=== PATIENT | male | born 1955 | race African-American/Black ===

== ENCOUNTER 2018-12-26 07:58 | Inpatient (IN) | payer OTHER ==
[2018-12-26] VITALS (18 sets, daily range): BP systolic 86–182; BP diastolic 41–78
[~2018-12-26] VITALS: Ht 180.3 cm; Wt 92.9 kg
[~2018-12-26 07:58] MED LIST: CHOL100046 PO; ELBA1TAB PO; FLO0.4C PO; LIDOcaine 1% (10mg/ml) 2ml vial ONE; REM15T PO; ROSU5TAB PO; TRIAMCINOLONE BOTHNARES; acetaminophen 325mg tablet PO ONE
[2018-12-26 09:50] LABS: BASOPHILS % (AUTO) 0.5 % (0-1); EOSINOPHILS # (AUTO) 0.4 X10'3 (0-0.9); EOSINOPHILS % (AUTO) 9.3 % (0-6); LYMPHOCYTES # (AUTO) 1.5 X10'3 (1.1-4.8); LYMPHOCYTES % (AUTO) 31.7 % (21-51); MEAN CORPUSCULAR HEMOGLOBIN 28.9 PG (27.0-31.0); MEAN CORPUSCULAR HGB CONC 32.2 g/dL (33.0-36.5); MEAN CORPUSCULAR VOLUME 89.8 FL (78-98); MEAN PLATELET VOLUME 8.4 FL (7.4-10.4); MONOCYTES # (AUTO) 0.6 X10'3 (0-0.9); NEUTROPHILS # (AUTO) 2.1 X10'3 (1.8-7.7); NEUTROPHILS % (AUTO) 46.5 % (42-75); PRE OP HEMATOCRIT 44.9 % (42.0-52.0); PRE OP HEMOGLOBIN 14.5 g/dL (14.0-17.9); PRE OP PLATELET COUNT 180 X10'3 (140-440); RED CELL DISTRIBUTION WIDTH 13.5 % (11.5-14.5)
[2018-12-26 09:56] LABS: PRE OP INR 1.1 INR; PRE OP PROTIME 11.1 SECONDS (9.0-12.0)
[2018-12-26 09:59] LABS: BLOOD UREA NITROGEN 6 MG/DL (7-18); CHLORIDE 109 MMOL/L (99-107); CREATININE 1.08 MG/DL (0.60-1.10); PRE OP ANION GAP 8 (8-16); PRE OP GLUCOSE 96 MG/DL (70-104); PRE OP POTASSIUM 4.3 MMOL/L (3.4-5.1); PRE OP SODIUM 145 MMOL/L (135-145); TOTAL CARBON DIOXIDE 28.5 MMOL/L (24-32)
[2018-12-26 10:00] LABS: ALBUMIN 3.5 G/DL (3.4-5.0); ALBUMIN/GLOBULIN RATIO 1.1 (1.1-1.5); ALKALINE PHOSPHATASE 79 IU/L (46-116); BUN/CREATININE RATIO 5.6 (5.4-32.0); CALCIUM 8.7 MG/DL (8.5-10.1); PRE OP ALT 48 U/L (30-65); PRE OP AST 35 U/L (10-37); PRE OP BILIRUB, TOTAL 0.9 MG/DL (0.0-1.0); TOTAL PROTEIN 6.8 G/DL (6.4-8.2); eGFR 84 ML/MIN
[2018-12-26] MEDS ORDERED: famotidine 20mg tablet PO ONE (11:30)
[2018-12-26] MEDS ORDERED: ringers solution, lacted 1,000 ML IV SCH ×2 (11:30→16:12)
[2018-12-26] MEDS ORDERED: tranexamic acid inj. 1,000 MG in normal saline 100 ML IV ONE (11:30)
[2018-12-26] MEDS ORDERED: cefazolin/dext.iso 2gm/50ml 50 ML IV ONE (11:30)
[2018-12-26] MEDS ORDERED: gabapentin 300mg capsule PO ONE (11:30)
[2018-12-26] MEDS ORDERED: oxyCODONE SR 10mg (sust. release) tab -2 tabs (20mg) PO ONE (11:30)
[2018-12-26] MEDS ORDERED: metoclopramide 5 mg/ml inj IV ONE (11:30)
[2018-12-26] MEDS ORDERED: vancomycin inj 1,500 MG in normal saline 300ml IV soln IV ONE (11:30)
[2018-12-26] MEDS ORDERED: diphenhydrAMINE 50 mg/ml inj ONE (12:30)
[2018-12-26] MEDS ORDERED: epiNEPHrine 1 mg/ml inj ONE (13:07)
[2018-12-26] MEDS ORDERED: cloNIDine hcl/PF 100mcg/ml inj ONE (13:07)
[2018-12-26] MEDS ORDERED: Thrombin (Bovine) 5,000 unit vial TP ONE (13:08)
[2018-12-26] MEDS ORDERED: ROPIVAcaine 0.5% (5mg/ml) 30ml vial ONE ×3 (13:08→15:55)
[2018-12-26] MEDS ORDERED: morphine 10mg/ml inj. ONE (13:08)
[2018-12-26] MEDS ORDERED: vancomycin 1,000mg inj ONE (13:08)
--- NOTE | 2018-12-26 14:15 | NUR ---
PT AGITATED AND VERY UNHAPPY ABOUT THE DELAY IN SURG. PT FRUSTRATED THAT SHE CANT REACH . NA 127, REPORTED TO DR LESLIE
[2018-12-26] MEDS ORDERED: tetracaine 1% (10mg/ml) pres. free inj. ONE (15:04)
[2018-12-26] MEDS ORDERED: fentaNYL/PF 50MCG/1 ML 2ML syringe ONE (15:06)
[2018-12-26] MEDS ORDERED: MIDAZolam 5mg/5ml vial ONE (15:06)
[2018-12-26] MEDS ORDERED: morphine /PF 1mg/ml 10ml inj. ONE (15:06)
[2018-12-26] MEDS ORDERED: LIDOcaine 1%/PF 5ML 10 MG/ML VIAL ONE (15:45)
[2018-12-26] MEDS ORDERED: propofol inj 20 ML IV ONE (15:45)
[2018-12-26] MEDS ORDERED: BUPIVAcaine/PF 7.5mg/ml (0.75%) 10ml vial ONE (15:45)
[2018-12-26] MEDS ORDERED: ketorolac trometh. 30mg/ml inj. ONE (15:55)
[2018-12-26] MEDS ORDERED: calcium chloride 100 MG/1 ML inj IV ONE (16:01)
[2018-12-26] MEDS ORDERED: naloxone 2mg/2ml inj 1.8 MG in normal saline 500ml IV soln 500 ML IV PRN (16:12)
[2018-12-26] MEDS ORDERED: proCHLORperazine 10 MG/2 ml inj IV PRN (16:15)
[2018-12-26] MEDS ORDERED: morphine 4 MG/ML inj SYRINge IV PRN ×2 (16:15)
[2018-12-26] MEDS ORDERED: diphenhydrAMINE 50 mg/ml inj IV PRN (16:15)
[2018-12-26] MEDS ORDERED: ondansetron/PF 4mg/2ml inj IV PRN ×3 (16:15→17:50)
[2018-12-26] MEDS ORDERED: meperidine/PF 25mg/ml syringe IV PRN ×3 (16:15)
[2018-12-26] MEDS ORDERED: bisacodyl 10mg suppository rectal RC PRN (17:50)
[2018-12-26] MEDS ORDERED: oxyCODONE IR 5mg (immed. release) tablet PO PRN (17:50)
[2018-12-26] MEDS ORDERED: HYDROmorphone inj. 0.5 MG/0.5 ML DISP.SYRIN IV PRN (17:50)
[2018-12-26] MEDS ORDERED: diphenhydrAMINE 25mg capsule PO PRN ×2 (17:50)
[2018-12-26] MEDS ORDERED: HYDROmorphone 1 mg/ml syringe IV PRN (17:50)
[2018-12-26] MEDS ORDERED: magnesium hydroxide 30ml (MOM) UD suspension PO PRN (17:50)
--- NOTE | 2018-12-26 17:50 | NUR ---
Received from OR via BED , accompanied by Anesthesiologist DR JUAREZ and report given by Anesthesiolgist. PATIENT WAKING UP, DENIES PAIN, V/S WNL, NEUROVASCULAR CHECKS INTACT, 20G PIV LORETTA, SCD ON, .MIDLINE ABDOMEN DRESSING CDI WITH SOME SHADOWING TO DRESSING BUT NO BREAKTHROUGH DRAINAGE. F/C DRAINING CLEAR YELLOW URINE Addendum: 12/26/18 at 1757 by Lauri August RN WRONG PATIENT
--- NOTE | 2018-12-26 18:00 | NUR ---
Received from OR via ortho bed, accompanied by Anesthesiologist Zack and report given by Anesthesiolgist. Pt responsive, patient on room air sats 98%, and BP slightly hypotensive 80s/40s, pt in trendelenberg and MD giving appropriate medications at bedside. BP rising. Pt responsive to questions. IV 18G in left forearm running LR IVF. Pulses distally to surgical site palpable and present. Left knee site has joseph dressing with cool pack present.
[2018-12-26] MEDS ORDERED: ePHEDrine 50MG/ML INJ. ONE (18:28)
[2018-12-26] MEDS: ROPIVAcaine 0.2%/PF PAIN PUMP 550 ML IJ SCH (18:43)
--- NOTE | 2018-12-26 18:54 | NUR ---
Called report to Liudmila HARP
--- NOTE | 2018-12-26 19:10 | NUR ---
Report called to receiving nurse. Transferred via ortho bed Belongings with guards at bedside. Special Issues communicated to receiving nurse LOYD Nur. Pt alert and responsive, all VS are stable, pt on room air, responding appropriately. IV remains to left forearm, pulses remain palpable distally to surgical site. Pt does not have feeling below T8 per spinal block. ON-Q attached to site running at 8ml/hr per MD orders. Guards at bedside. Tele retreived and placed on patient.
[2018-12-26] MEDS ORDERED: vancomycin/NS 1 GM ADD-VANTAGE 250 ML IV SCH ×2 (20:00→22:52)
[2018-12-26] MEDS ORDERED: tranexamic acid inj. 900 MG in normal saline 100ml IV soln 100 ML IV ONE (20:50)
[2018-12-26] MEDS: potassium cl 20mEq in 1/2 NS 1,000 ML IV SCH (21:02)
[2018-12-26] MEDS: ketorolac tromethamine 15mg/ml inj. IV SCH (21:03)
[2018-12-26] MEDS: mirtazapine 15mg tablet PO SCH (22:13)
[2018-12-26] MEDS: tamsulosin 0.4mg capsule PO SCH (22:13)
[2018-12-26] MEDS: gabapentin 300mg capsule PO SCH (22:13)
[2018-12-26] MEDS: sennosides 8.6mg tablet PO SCH (22:14)
[2018-12-27] VITALS (9 sets, daily range): BP systolic 88–159; BP diastolic 48–88
[2018-12-27] MEDS: potassium cl 20mEq in 1/2 NS 1,000 ML IV SCH ×3 (01:46→16:41)
[2018-12-27] MEDS: ketorolac tromethamine 15mg/ml inj. IV SCH ×3 (02:00→14:29)
[2018-12-27] MEDS: oxyCODONE IR 5mg (immed. release) tablet PO PRN ×4 (04:43→20:53)
[2018-12-27 05:26] LABS: BASOPHILS % (AUTO) 0.1 % (0-1); EOSINOPHILS # (AUTO) 0.1 X10'3 (0-0.9); EOSINOPHILS % (AUTO) 1.1 % (0-6); HEMATOCRIT 37.8 % (42.0-52.0); HEMOGLOBIN 12.4 g/dl (14.0-17.9); LYMPHOCYTES # (AUTO) 1.1 X10'3 (1.1-4.8); LYMPHOCYTES % (AUTO) 15.9 % (21-51); MEAN CORPUSCULAR HEMOGLOBIN 29.9 PG (27.0-31.0); MEAN CORPUSCULAR HGB CONC 32.9 g/dL (33.0-36.5); MEAN CORPUSCULAR VOLUME 90.9 FL (78-98); MEAN PLATELET VOLUME 8.4 FL (7.4-10.4); MONOCYTES # (AUTO) 0.7 X10'3 (0-0.9); MONOCYTES % (AUTO) 10.3 % (2-12); NEUTROPHILS # (AUTO) 5.2 X10'3 (1.8-7.7); NEUTROPHILS % (AUTO) 72.6 % (42-75); PLATELET COUNT 169 X10'3 (140-440); RED BLOOD COUNT 4.16 X10'6 (4.70-6.10); WHITE BLOOD COUNT 7.1 X10'3 (4.5-11.0)
[2018-12-27 05:30] LABS: ANION GAP 11 (8-16); CHLORIDE 109 MMOL/L (99-107); POTASSIUM 4.3 MMOL/L (3.5-5.1); SODIUM 144 MMOL/L (135-145); TOTAL CARBON DIOXIDE 24.5 MMOL/L (24-32)
--- NOTE | 2018-12-27 06:37 | NUR ---
Patient in room ORTHO 4017. I have received report from Liudmila HARP and had the opportunity to ask questions and assume patient care.
[2018-12-27] MEDS: ZEPATIER PO SCH (07:28)
[2018-12-27] MEDS: vitamin D (cholecalciferol) 1,000 unit tablet PO SCH (07:29)
[2018-12-27] MEDS: atorvastatin 20mg tablet PO SCH (07:30)
[2018-12-27] MEDS: gabapentin 300mg capsule PO SCH ×3 (07:31→20:51)
[2018-12-27] MEDS: enoxaparin 40mg/0.4ml syringe SQ SCH (07:31)
[2018-12-27] MEDS: fluticasone nasal spray 16GM bottle NS SCH (07:32)
[2018-12-27] MEDS ORDERED: ASPI-1 PO (09:10)
[2018-12-27] MEDS ORDERED: OXYC-658 PO (09:12)
--- NOTE | 2018-12-27 10:58 | NUR ---
RUI melvin. patient tolerated well. educated on using urinal and bathroom from now on.
--- NOTE | 2018-12-27 13:00 | NUR ---
Picco dressing saturated with blood. Dr. Maurice notified said to changed picco dressing and put in knee imobilizer until bleeding stops. Changed Picco dressing and knee wrap after applying pressure gauze dressing.
--- NOTE | 2018-12-27 15:02 | NUR ---
Joint consult: Pt s/p joint surgery. PO increased to 80% meals per RN w/ good appetite. Labs WNL. To return to skilled nursing post-op per MD note. No nutrition concerns at this time. Will continue to monitor. Addendum: 12/27/18 at [address] Amended: Links added.
--- NOTE | 2018-12-27 18:33 | NUR ---
Problems reprioritized. Patient report given, questions answered & plan of care reviewed with Edda HARP.
--- NOTE | 2018-12-27 20:00 | NUR ---
Patient assessed. Dressing to right total knee assess has some bloody drainage noted to joseph dressing. Margins marked. Patient has good Capillary refills and good pulse to that right leg. Will continue with care.
[2018-12-27] MEDS: sennosides 8.6mg tablet PO SCH (20:51)
[2018-12-27] MEDS: mirtazapine 15mg tablet PO SCH (20:52)
[2018-12-27] MEDS: tamsulosin 0.4mg capsule PO SCH (20:55)
--- NOTE | 2018-12-27 22:00 | NUR ---
Patient stating pain is 10/10 after 1 hr of oxycodone given. Ropivacaine increased from 12ml/hr tp 14ml/hr. Will continue with care.
[2018-12-27] MEDS ORDERED: ketorolac tromethamine 15mg/ml inj. IV PRN (22:25)
--- NOTE | 2018-12-27 22:40 | NUR ---
Dr. Maurice notified of patient's Fever of 101.5. After cooling measures started and Encourage use of IS. Patient is allergic to Tylenol, naproxen, and ibuprofen. New orders for Toradol 15mg PRN Q6hrs. Updated MD of patient's Joseph dressing-No new bleeding noted to joseph dressing. Continue with cooling measures and Encourage IS use.
--- NOTE | 2018-12-28 00:35 | NUR ---
Patient Dressing check. No new bleeding noted from the margins kerwin at the beginning of the shift. Temp 99.6 currently.
[2018-12-28] MEDS: potassium cl 20mEq in 1/2 NS 1,000 ML IV SCH ×2 (00:45→09:46)
[2018-12-28] MEDS: oxyCODONE IR 5mg (immed. release) tablet PO PRN ×3 (05:26→13:53)
[2018-12-28 06:00] VITALS: BP 164/97
--- NOTE | 2018-12-28 06:20 | NUR ---
Patient in room ORTHO 4017. I have received report from Nirav and had the opportunity to ask questions and assume patient care.
[2018-12-28 07:17] LABS: BASOPHILS % (AUTO) 0.2 % (0-1); EOSINOPHILS % (AUTO) 0.1 % (0-6); HEMATOCRIT 39.8 % (42.0-52.0); HEMOGLOBIN 13.1 g/dl (14.0-17.9); LYMPHOCYTES # (AUTO) 1.3 X10'3 (1.1-4.8); LYMPHOCYTES % (AUTO) 13.7 % (21-51); MEAN CORPUSCULAR HEMOGLOBIN 29.8 PG (27.0-31.0); MEAN CORPUSCULAR HGB CONC 32.9 g/dL (33.0-36.5); MEAN CORPUSCULAR VOLUME 90.6 FL (78-98); MEAN PLATELET VOLUME 9.1 FL (7.4-10.4); MONOCYTES # (AUTO) 1.3 X10'3 (0-0.9); MONOCYTES % (AUTO) 13.6 % (2-12); NEUTROPHILS % (AUTO) 72.4 % (42-75); PLATELET COUNT 138 X10'3 (140-440); RED BLOOD COUNT 4.39 X10'6 (4.70-6.10); RED CELL DISTRIBUTION WIDTH 13.6 % (11.5-14.5); WHITE BLOOD COUNT 9.7 X10'3 (4.5-11.0)
[2018-12-28] MEDS: vitamin D (cholecalciferol) 1,000 unit tablet PO SCH (07:59)
[2018-12-28] MEDS: atorvastatin 20mg tablet PO SCH (07:59)
[2018-12-28] MEDS: gabapentin 300mg capsule PO SCH ×2 (07:59→13:50)
[2018-12-28] MEDS: enoxaparin 40mg/0.4ml syringe SQ SCH (08:00)
[2018-12-28] MEDS: fluticasone nasal spray 16GM bottle NS SCH (08:00)
[2018-12-28] MEDS: ROPIVAcaine 0.2%/PF PAIN PUMP 550 ML IJ SCH (08:02)
--- NOTE | 2018-12-28 09:00 | NUR ---
DC orders in. Awaiting coordination with [facility] for transport.
[2018-12-28] MEDS: ZEPATIER PO SCH (09:16)
[2018-12-28 09:43] VITALS: BP 167/96
--- NOTE | 2018-12-28 17:14 | NUR ---
Reviewed post -op instructions with pt. Pt verbalized understanding. Spoke with RN at [facility] to provide instructions regarding On-Q pump and SAMREEN dressing. Pt was wheeled downstairs, accompanied by guards/[facility] personnel, to be driven back to the [facility].
== END 2018-12-28 16:45 | DRG 470 ==
LOC: PAS IN 07:58 → EEVIPCON 13:30 → EDSTATUS 13:30 → ORTHO 4S 19:05
PROVIDERS: ADMIT Orthopaedic Surgery; ATTEND Orthopaedic Surgery
PROC: 3E0T3BZ Introduction of Anesthetic Agent into Peripheral Nerves and Plexi, Percutaneous Approach (ICD-10-PCS; 2018-12-26)
PROC: 8E0YXCZ Robotic Assisted Procedure of Lower Extremity (ICD-10-PCS; 2018-12-26)
PROC: 0SRD069 Replacement of Left Knee Joint with Oxidized Zirconium on Polyethylene Synthetic Substitute, Cemented, Open Approach (ICD-10-PCS; principal; 2018-12-26 15:00)
DX: M17.12 Unilateral primary osteoarthritis, left knee (principal); D62 Acute posthemorrhagic anemia; N40.0 Benign prostatic hyperplasia without lower urinary tract symptoms; B19.20 Unspecified viral hepatitis C without hepatic coma; Z88.0 Allergy status to penicillin; Z88.5 Allergy status to narcotic agent
CPT/HCPCS: Z7506; Z7508; 36415; 80051; 80053; 85025; 85610; 85730; 87081; 93005; 97110; 97116; 97162; 97530; A4215; A6454; A7000; C1713; C1758; C1776; G0378; J0171; J0735; J1170; J1200; J1650; J1885; J2001; J2250; J2270; J2405; J2704; J2765; J2795; J3010; J3370; J3480; J3490; J7030; J7120; Q0163

== ENCOUNTER 2019-01-02 11:56 | Inpatient (IN) | payer OTHER ==
[~2019-01-02] VITALS: Ht 180.3 cm; Wt 91.8 kg
[~2019-01-02 11:56] MED LIST changes: +ASPI-1 PO; -LIDOcaine 1% (10mg/ml) 2ml vial ONE; +OXYC-658 PO; -TRIAMCINOLONE BOTHNARES; -acetaminophen 325mg tablet PO ONE
[2019-01-02 22:00] VITALS: BP 145/75
[2019-01-02] MEDS ORDERED: magnesium hydroxide 30ml (MOM) UD suspension PO PRN (22:15)
[2019-01-02] MEDS ORDERED: ondansetron/PF 4mg/2ml inj IV PRN (22:15)
[2019-01-02] MEDS ORDERED: HYDROmorphone inj. 0.5 MG/0.5 ML DISP.SYRIN IV PRN (22:15)
[2019-01-02] MEDS ORDERED: bisacodyl 10mg suppository rectal RC PRN (22:15)
[2019-01-02] MEDS ORDERED: dextrose 5%-1/2 normal saline 1,000 ML IV SCH (22:15)
[2019-01-02] MEDS ORDERED: diphenhydrAMINE 25mg capsule PO PRN ×2 (22:15)
[2019-01-02] MEDS ORDERED: oxyCODONE IR 5mg (immed. release) tablet PO PRN (22:15)
[2019-01-02 23:05] LABS: BASOPHILS % (AUTO) 0.3 % (0-1); EOSINOPHILS # (AUTO) 0.2 X10'3 (0-0.9); EOSINOPHILS % (AUTO) 1.8 % (0-6); HEMATOCRIT 33.2 % (42.0-52.0); HEMOGLOBIN 11.2 g/dl (14.0-17.9); LYMPHOCYTES # (AUTO) 0.9 X10'3 (1.1-4.8); LYMPHOCYTES % (AUTO) 10.2 % (21-51); MEAN CORPUSCULAR HEMOGLOBIN 29.9 PG (27.0-31.0); MEAN CORPUSCULAR HGB CONC 33.7 g/dL (33.0-36.5); MEAN CORPUSCULAR VOLUME 88.8 FL (78-98); MEAN PLATELET VOLUME 7.5 FL (7.4-10.4); MONOCYTES # (AUTO) 1.4 X10'3 (0-0.9); MONOCYTES % (AUTO) 16.4 % (2-12); NEUTROPHILS % (AUTO) 71.3 % (42-75); PLATELET COUNT 300 X10'3 (140-440); RED BLOOD COUNT 3.74 X10'6 (4.70-6.10); RED CELL DISTRIBUTION WIDTH 12.9 % (11.5-14.5); WHITE BLOOD COUNT 8.4 X10'3 (4.5-11.0)
[2019-01-02] MEDS: oxyCODONE IR 5mg (immed. release) tablet PO PRN (23:17)
[2019-01-03] VITALS (13 sets, daily range): BP systolic 108–143; BP diastolic 53–81
--- NOTE | 2019-01-03 06:05 | NUR ---
Patient in room ORTHO 4015. I have received report from ROBBIE HARP and had the opportunity to ask questions and assume patient care.
--- NOTE | 2019-01-03 06:14 | NUR ---
Problems reprioritized. Patient report given, questions answered & plan of care reviewed with LOYD Arias.
[2019-01-03] MEDS: ELBASVIR PO SCH ×2 (08:00→21:30)
[2019-01-03] MEDS ORDERED: tamsulosin 0.4mg capsule PO SCH (08:00)
[2019-01-03] MEDS: GRAZOPREVIR PO SCH ×2 (08:00→21:30)
[2019-01-03] MEDS: vitamin D (cholecalciferol) 1,000 unit tablet PO SCH (08:00)
[2019-01-03] MEDS: tamsulosin 0.4mg capsule PO SCH (08:06)
[2019-01-03] MEDS: atorvastatin 20mg tablet PO SCH (08:06)
[2019-01-03] MEDS: oxyCODONE IR 5mg (immed. release) tablet PO PRN ×2 (08:07→12:13)
[2019-01-03] MEDS: normal saline 1000ml 1,000 ML IV SCH ×2 (12:17→22:00)
--- NOTE | 2019-01-03 16:30 | NUR ---
PATIENT DOWN TO THE OR, REPORT CALLED TO KIMMIE HARP.
[2019-01-03] MEDS ORDERED: tobramycin sulfate 1.2gm vial TP ONE (16:37)
[2019-01-03] MEDS ORDERED: vancomycin 1,000mg inj ONE ×2 (16:55→18:44)
[2019-01-03] MEDS ORDERED: tranexamic acid inj. 1,000 MG in normal saline 100ml IV soln 100 ML IV ONE (17:05)
[2019-01-03] MEDS ORDERED: tetracaine 1% (10mg/ml) pres. free inj. ONE (17:18)
[2019-01-03] MEDS ORDERED: MIDAZolam 1mg/ml 10ml vial ONE (17:20)
[2019-01-03] MEDS ORDERED: fentaNYL/PF 50MCG/1 ML 2ML syringe ONE (17:20)
[2019-01-03] MEDS ORDERED: ringers solution, lacted 1,000 ML IV SCH (17:28)
[2019-01-03] MEDS ORDERED: morphine 4 MG/ML inj SYRINge IV PRN ×2 (17:30)
[2019-01-03] MEDS ORDERED: proCHLORperazine 10 MG/2 ml inj IV PRN (17:30)
[2019-01-03] MEDS ORDERED: ondansetron/PF 4mg/2ml inj IV PRN ×2 (17:30→19:10)
[2019-01-03] MEDS ORDERED: meperidine/PF 25mg/ml syringe IV PRN ×3 (17:30)
[2019-01-03] MEDS ORDERED: propofol inj 20 ML IV ONE ×2 (17:49)
--- NOTE | 2019-01-03 18:00 | NUR ---
Problems reprioritized. Patient report given, questions answered & plan of care reviewed with ERASTO RN.
[2019-01-03] MEDS ORDERED: neomy sulf/bacitrac zn/polymixin b oint 14.2 gm tube TP ONE (19:03)
[2019-01-03] MEDS ORDERED: diphenhydrAMINE 25mg capsule PO PRN ×2 (19:10)
[2019-01-03] MEDS ORDERED: magnesium hydroxide 30ml (MOM) UD suspension PO PRN (19:10)
[2019-01-03] MEDS ORDERED: HYDROmorphone inj. 0.5 MG/0.5 ML DISP.SYRIN IV PRN (19:10)
[2019-01-03] MEDS ORDERED: oxyCODONE IR 5mg (immed. release) tablet PO PRN (19:10)
[2019-01-03] MEDS ORDERED: bisacodyl 10mg suppository rectal RC PRN (19:10)
[2019-01-03] MEDS ORDERED: acetaminophen 325mg tablet PO PRN (19:10)
--- NOTE | 2019-01-03 19:40 | NUR ---
Received from OR via BED, accompanied by Anesthesiologist LEONARDO and report given by Anesthesiolgist. PT DROWSY, OXYGENATING WELL ON 2 LPM O2 VIA MASK, NO RESP DISTRESS NOTED. PT DENIES NAUSEA, DENIES PAIN. HAD SAB AND L FNB. NO MOVEMENT OR SENSATION FROM THE UMBILICUS DOWN. PPP=BILAT. L KNEE IMMOBILIZER ON. WV TO INCISION, 125 SX, GOOD SEAL. DEE DRAIN TO LLE WELL. SCDS ON. VSS. FC PATENT
[2019-01-03] MEDS ORDERED: vancomycin/NS 1 GM ADD-VANTAGE 250 ML IV SCH (20:00)
--- NOTE | 2019-01-03 20:10 | NUR ---
ALL CRITERIA FOR TRANSFER TO THE FLOOR HAS BEEN ACHIEVED. VSS. BED LOW, CALL LIGHT AND VS. SET IN PLACE. RN PRESENT TO ACCEPT CARE. PATIENT RESTING COMFORTABLY IN BED. BELONGINGS SENT WITH PATIENT. DRESSINGS CDI. Addendum: 01/03/19 at 2028 by Alex Mercer RN RN Amended: Links added.
[2019-01-03] MEDS ORDERED: mirtazapine 15mg tablet PO SCH (21:00)
--- NOTE | 2019-01-03 21:00 | NUR ---
Contacted Dr. Maurice to clarify melvin catheter orders, and hep c medication (eblasvir) that patient wanted to take. The medication was held due to the patients procedure today. Dr. Maurice okayed for patient to take the medication tonight and stated that he wanted to keep the melvin in and also requested for no PT tomorrow as patient has wound vac and drains in. will continue to monitor patient.
[2019-01-03] MEDS: mirtazapine 15mg tablet PO SCH (21:11)
[2019-01-03] MEDS: potassium cl 20mEq in 1/2 NS 1,000 ML IV SCH (21:12)
[2019-01-03] MEDS: gabapentin 300mg capsule PO SCH (21:12)
[2019-01-03] MEDS: sennosides 8.6mg tablet PO SCH (21:12)
[2019-01-03] MEDS: clindamycin 300mg/D5W 50mL 50 ML IV SCH (21:31)
[2019-01-04] VITALS (7 sets, daily range): BP systolic 138–165; BP diastolic 72–96
[2019-01-04] MEDS: oxyCODONE IR 5mg (immed. release) tablet PO PRN ×5 (00:03→19:04)
[2019-01-04] MEDS: HYDROmorphone 1 mg/ml syringe IV PRN ×4 (01:52→20:36)
[2019-01-04] MEDS: clindamycin 300mg/D5W 50mL 50 ML IV SCH ×2 (03:05→08:11)
[2019-01-04] MEDS: potassium cl 20mEq in 1/2 NS 1,000 ML IV SCH ×3 (03:10→20:22)
--- NOTE | 2019-01-04 06:15 | NUR ---
Gave report to Juana HARP.
[2019-01-04 06:54] LABS: ANION GAP 10 (8-16); CHLORIDE 103 MMOL/L (99-107); POTASSIUM 4.5 MMOL/L (3.5-5.1); SODIUM 135 MMOL/L (135-145); TOTAL CARBON DIOXIDE 22.5 MMOL/L (24-32)
[2019-01-04 06:55] LABS: BASOPHILS % (AUTO) 0.3 % (0-1); EOSINOPHILS % (AUTO) 0.1 % (0-6); HEMATOCRIT 32.3 % (42.0-52.0); HEMOGLOBIN 10.9 g/dl (14.0-17.9); LYMPHOCYTES # (AUTO) 0.4 X10'3 (1.1-4.8); LYMPHOCYTES % (AUTO) 5.1 % (21-51); MEAN CORPUSCULAR HEMOGLOBIN 29.7 PG (27.0-31.0); MEAN CORPUSCULAR HGB CONC 33.8 g/dL (33.0-36.5); MEAN PLATELET VOLUME 7.7 FL (7.4-10.4); MONOCYTES # (AUTO) 1.1 X10'3 (0-0.9); NEUTROPHILS # (AUTO) 7.2 X10'3 (1.8-7.7); NEUTROPHILS % (AUTO) 82.5 % (42-75); PLATELET COUNT 373 X10'3 (140-440); RED BLOOD COUNT 3.67 X10'6 (4.70-6.10); RED CELL DISTRIBUTION WIDTH 12.7 % (11.5-14.5); WHITE BLOOD COUNT 8.8 X10'3 (4.5-11.0)
[2019-01-04] MEDS ORDERED: ELBASVIR PO ONE (07:05)
[2019-01-04] MEDS ORDERED: GRAZOPREVIR PO ONE (07:05)
[2019-01-04] MEDS: normal saline 1000ml 1,000 ML IV SCH (08:00)
[2019-01-04] MEDS: gabapentin 300mg capsule PO SCH ×3 (08:04→20:26)
[2019-01-04] MEDS: atorvastatin 20mg tablet PO SCH (08:04)
[2019-01-04] MEDS: tamsulosin 0.4mg capsule PO SCH (08:05)
[2019-01-04] MEDS: vitamin D (cholecalciferol) 1,000 unit tablet PO SCH (08:05)
[2019-01-04] MEDS: enoxaparin 40mg/0.4ml syringe SQ SCH (08:06)
--- NOTE | 2019-01-04 13:42 | NUR ---
GAVE 2 OXY 5MG AT 1342 DIDN'T SAVE, DID UNSCHEDULED ADMINISTRATION TO CORRECT.
[2019-01-04] MEDS: vancomycin/NS 1 GM ADD-VANTAGE 250 ML IV SCH ×2 (14:19→15:57)
[2019-01-04 14:52] LABS: CREATININE 1.11 MG/DL (0.60-1.10); eGFR 81 ML/MIN
[2019-01-04] MEDS ORDERED: HYDROmorphone 1 mg/ml syringe IV PRN (16:50)
--- NOTE | 2019-01-04 18:00 | NUR ---
Problems reprioritized. Patient report given, questions answered & plan of care reviewed with ERASTO RN.
--- NOTE | 2019-01-04 18:20 | NUR ---
Received report from Juana AHRP. assumed care of patient.
[2019-01-04] MEDS: lactobacillus rhamnosus 10,000 MMU CELLS/CAPSULE PO SCH (20:25)
[2019-01-04] MEDS: mirtazapine 15mg tablet PO SCH (20:26)
[2019-01-04] MEDS: sennosides 8.6mg tablet PO SCH (20:27)
--- NOTE | 2019-01-04 20:30 | NUR ---
pt is inmate with x2 guards at bedside at all times. pt is pleasant and cooperative with cares. Addendum: 01/04/19 at 2245 by Jess Lipscomb RN Amended: Links added.
--- NOTE | 2019-01-05 00:06 | NUR ---
pt assisted with repositioning for comfort prn; bilat heels floated, left leg in knee immobilizer. Addendum: 01/05/19 at 0008 by Jess iLpscomb RN Amended: Links added.
[2019-01-05] MEDS: oxyCODONE IR 5mg (immed. release) tablet PO PRN ×5 (02:48→22:35)
[2019-01-05] MEDS: potassium cl 20mEq in 1/2 NS 1,000 ML IV SCH (03:10)
[2019-01-05] MEDS: VANCOmycin 1250MG/NS 250ml Bag 250 ML IV SCH ×2 (03:46→16:12)
[2019-01-05 06:00] VITALS: BP 158/69
--- NOTE | 2019-01-05 06:00 | NUR ---
In agreement with and have reviewed all charting and med pass completed by Jess HARP for the shift time frame.
--- NOTE | 2019-01-05 06:10 | NUR ---
Gave report to Juana HARP.
[2019-01-05 06:22] LABS: BASOPHILS # (AUTO) 0.1 X10'3 (0-0.2); BASOPHILS % (AUTO) 0.8 % (0-1); EOSINOPHILS # (AUTO) 0.1 X10'3 (0-0.9); HEMATOCRIT 36.3 % (42.0-52.0); HEMOGLOBIN 12.4 g/dl (14.0-17.9); LYMPHOCYTES # (AUTO) 1.7 X10'3 (1.1-4.8); LYMPHOCYTES % (AUTO) 16.1 % (21-51); MEAN CORPUSCULAR HEMOGLOBIN 30.1 PG (27.0-31.0); MEAN CORPUSCULAR HGB CONC 34.2 g/dL (33.0-36.5); MEAN PLATELET VOLUME 7.6 FL (7.4-10.4); MONOCYTES # (AUTO) 2.2 X10'3 (0-0.9); NEUTROPHILS # (AUTO) 6.5 X10'3 (1.8-7.7); NEUTROPHILS % (AUTO) 61.1 % (42-75); PLATELET COUNT 472 X10'3 (140-440); RED BLOOD COUNT 4.13 X10'6 (4.70-6.10); RED CELL DISTRIBUTION WIDTH 12.8 % (11.5-14.5); WHITE BLOOD COUNT 10.6 X10'3 (4.5-11.0)
[2019-01-05] MEDS: lactobacillus rhamnosus 10,000 MMU CELLS/CAPSULE PO SCH ×2 (07:30→20:03)
[2019-01-05] MEDS: GRAZOPREVIR PO SCH (07:31)
[2019-01-05] MEDS: vitamin D (cholecalciferol) 1,000 unit tablet PO SCH (07:31)
[2019-01-05] MEDS: ELBASVIR PO SCH (07:31)
[2019-01-05] MEDS: gabapentin 300mg capsule PO SCH ×3 (07:31→20:03)
[2019-01-05] MEDS: tamsulosin 0.4mg capsule PO SCH (07:31)
[2019-01-05] MEDS: atorvastatin 20mg tablet PO SCH (07:31)
[2019-01-05] MEDS: enoxaparin 40mg/0.4ml syringe SQ SCH (07:31)
[2019-01-05 09:11] LABS: PLATELET ESTIMATE NORMAL; TOTAL CELLS COUNTED 100
[2019-01-05 10:00] VITALS: BP 152/77
[2019-01-05 18:00] VITALS: BP 137/71
--- NOTE | 2019-01-05 18:04 | NUR ---
Problems reprioritized. Patient report given, questions answered & plan of care reviewed with ERASTO RN.
--- NOTE | 2019-01-05 18:20 | NUR ---
Received report from Juana HARP. assumed care of patient.
[2019-01-05] MEDS: mirtazapine 15mg tablet PO SCH (20:03)
[2019-01-05] MEDS: sennosides 8.6mg tablet PO SCH (20:03)
[2019-01-05 22:00] VITALS: BP 121/79
[2019-01-06] MEDS ORDERED: VANCOMYCIN LEVEL IV ONE (03:30)
[2019-01-06 03:53] LABS: BASOPHILS # (AUTO) 0.1 X10'3 (0-0.2); BASOPHILS % (AUTO) 0.7 % (0-1); EOSINOPHILS # (AUTO) 0.2 X10'3 (0-0.9); EOSINOPHILS % (AUTO) 1.7 % (0-6); HEMATOCRIT 36.2 % (42.0-52.0); LYMPHOCYTES # (AUTO) 1.7 X10'3 (1.1-4.8); LYMPHOCYTES % (AUTO) 16.1 % (21-51); MEAN CORPUSCULAR HEMOGLOBIN 29.7 PG (27.0-31.0); MEAN CORPUSCULAR HGB CONC 33.2 g/dL (33.0-36.5); MEAN CORPUSCULAR VOLUME 89.3 FL (78-98); MEAN PLATELET VOLUME 7.6 FL (7.4-10.4); MONOCYTES # (AUTO) 1.9 X10'3 (0-0.9); MONOCYTES % (AUTO) 18.4 % (2-12); NEUTROPHILS # (AUTO) 6.7 X10'3 (1.8-7.7); NEUTROPHILS % (AUTO) 63.1 % (42-75); PLATELET COUNT 472 X10'3 (140-440); RED BLOOD COUNT 4.05 X10'6 (4.70-6.10); RED CELL DISTRIBUTION WIDTH 13.1 % (11.5-14.5); WHITE BLOOD COUNT 10.5 X10'3 (4.5-11.0)
[2019-01-06] MEDS: VANCOmycin 1250MG/NS 250ml Bag 250 ML IV SCH (04:05)
[2019-01-06] MEDS: oxyCODONE IR 5mg (immed. release) tablet PO PRN ×5 (05:05→23:10)
[2019-01-06 06:00] VITALS: BP 146/76
--- NOTE | 2019-01-06 06:00 | NUR ---
Gave report to Zaira HARP.
[2019-01-06 10:00] VITALS: BP 131/83
[2019-01-06] MEDS: tamsulosin 0.4mg capsule PO SCH (10:16)
[2019-01-06] MEDS: atorvastatin 20mg tablet PO SCH (10:16)
[2019-01-06] MEDS: lactobacillus rhamnosus 10,000 MMU CELLS/CAPSULE PO SCH ×2 (10:16→20:47)
[2019-01-06] MEDS: gabapentin 300mg capsule PO SCH ×3 (10:16→20:47)
[2019-01-06] MEDS: ELBASVIR PO SCH (10:17)
[2019-01-06] MEDS: GRAZOPREVIR PO SCH (10:17)
[2019-01-06] MEDS: vitamin D (cholecalciferol) 1,000 unit tablet PO SCH (10:18)
[2019-01-06] MEDS: enoxaparin 40mg/0.4ml syringe SQ SCH (10:19)
[2019-01-06 18:30] VITALS: BP 115/67
[2019-01-06] MEDS: sennosides 8.6mg tablet PO SCH (20:47)
[2019-01-06] MEDS: mirtazapine 15mg tablet PO SCH (20:47)
[2019-01-06 21:55] VITALS: BP 120/70
[2019-01-07] MEDS: oxyCODONE IR 5mg (immed. release) tablet PO PRN ×4 (05:39→19:18)
[2019-01-07 06:00] VITALS: BP 138/80
[2019-01-07 06:54] VITALS: BP 138/80
[2019-01-07] MEDS: GRAZOPREVIR PO SCH (08:29)
[2019-01-07] MEDS: lactobacillus rhamnosus 10,000 MMU CELLS/CAPSULE PO SCH ×2 (08:29→19:17)
[2019-01-07] MEDS: ELBASVIR PO SCH (08:29)
[2019-01-07] MEDS: gabapentin 300mg capsule PO SCH ×3 (08:29→20:14)
[2019-01-07] MEDS: atorvastatin 20mg tablet PO SCH (08:29)
[2019-01-07] MEDS: tamsulosin 0.4mg capsule PO SCH (08:29)
[2019-01-07] MEDS: enoxaparin 40mg/0.4ml syringe SQ SCH (08:30)
[2019-01-07] MEDS: vitamin D (cholecalciferol) 1,000 unit tablet PO SCH (08:30)
[2019-01-07 10:00] VITALS: BP 131/71
--- NOTE | 2019-01-07 11:28 | NUR ---
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 PO 100% meals double proteins TIDWM added for additional needs; dietary notified. [facility] 01/06. Will continue to monitor. Rec: 1. continue regular diet; caution tray w/ chopped meats 2. double proteins TIDWM 3. wt per rx Addendum: 01/07/19 at [address] Amended: Links added.
[2019-01-07 13:26] LABS: CLARITY,URINE CLEAR (Clear); COLOR,URINE YELLOW (Yellow); GLUCOSE, URINE NEGATIVE (Neg); KETONES,URINE NEGATIVE (Neg); LEUKOCYTE ESTERASE ,URINE NEGATIVE (Neg); NITRITES, URINE NEGATIVE (Neg); OCCULT BLOOD,URINE TRACE-INTACT (Neg); PROTEIN,URINE NEGATIVE (Neg)
[2019-01-07 13:27] LABS: UA COLLECTION TYPE CLN CATCH MIDSTREAM
[2019-01-07 13:34] LABS: BACTERIA,URINE FEW /HPF (Neg); RBC,URINE 0-2 /HPF (0-2); SQUAMOUS EPITHELIAL CELL,UR FEW /LPF (FEW); WBC,URINE 0-4 /HPF (0-4)
--- NOTE | 2019-01-07 15:07 | NUR ---
Wound care POC. Arrived at bedside to assess wound vac to the left knee s/p debridement on 01/[address] Maurice. Called MD to verify plan of care and if the vac needs to be changed. Dr. Maurice states that the wound vac can be discontinued as the drainage is <10mL since the vac was placed. Primary nurse to DC wound vac per MD order and place appropriate dressing. Pt educated on plan of care.
--- NOTE | 2019-01-07 15:14 | NUR ---
WOUND INFECTION EDUCATION PROVIDED BY WOUND CARE 1. Patient instructed to call their primary doctor, or go the ED immediately if any of the following symptoms occur: * Increased pain in wound * Increase in drainage from the wound * Redness in the skin surrounding the wound * Warmth in the skin surrounding the wound * Bleeding from the wound * Temperature of 101 or greater 2. If any of these occur while in the hospital tell a nurse immediately. Addendum: 01/07/19 at 1514 by David Asencio RN Amended: Links added.
[2019-01-07 18:00] VITALS: BP 123/70
--- NOTE | 2019-01-07 18:25 | NUR ---
Problems reprioritized. Patient report given, questions answered & plan of care reviewed with LOYD Olivier.
[2019-01-07] MEDS: mirtazapine 15mg tablet PO SCH (20:14)
[2019-01-07] MEDS: sennosides 8.6mg tablet PO SCH (20:14)
[2019-01-07 22:00] VITALS: BP 113/64
[2019-01-08] MEDS: oxyCODONE IR 5mg (immed. release) tablet PO PRN ×4 (01:12→19:04)
[2019-01-08] MEDS ORDERED: VANCOMYCIN LEVEL IV ONE ×2 (03:30→15:30)
[2019-01-08 04:18] LABS: ALANINE AMINOTRANSFERASE 75 U/L (12-78); ALBUMIN 2.2 G/DL (3.4-5.0); ALBUMIN/GLOBULIN RATIO 0.4 (1.1-1.5); ALKALINE PHOSPHATASE 73 IU/L (46-116); ANION GAP 5 (8-16); ASPARTATE AMINO TRANSFERASE 77 U/L (10-37); BILIRUBIN,TOTAL 0.9 MG/DL (0.1-1.0); BLOOD UREA NITROGEN 16 MG/DL (7-18); BUN/CREATININE RATIO 12.7 (5.4-32.0); CALCIUM 8.5 MG/DL (8.5-10.1); CHLORIDE 100 MMOL/L (99-107); CREATININE 1.26 MG/DL (0.60-1.10); GLUCOSE 102 MG/DL (70-104); POTASSIUM 4.8 MMOL/L (3.5-5.1); SODIUM 134 MMOL/L (135-145); TOTAL PROTEIN 7.1 G/DL (6.4-8.2); VANCOMYCIN,TROUGH 12.4 UG/ML (6.0-14.0); eGFR 70 ML/MIN
[2019-01-08 06:00] VITALS: BP 124/73
--- NOTE | 2019-01-08 06:11 | NUR ---
Problems reprioritized. Patient report given, questions answered & plan of care reviewed with Zaira HARP.
[2019-01-08] MEDS: atorvastatin 20mg tablet PO SCH (08:00)
[2019-01-08 10:00] VITALS: BP 140/86
[2019-01-08] MEDS: tamsulosin 0.4mg capsule PO SCH (10:08)
[2019-01-08] MEDS: lactobacillus rhamnosus 10,000 MMU CELLS/CAPSULE PO SCH ×2 (10:08→20:06)
[2019-01-08] MEDS: ELBASVIR PO SCH (10:09)
[2019-01-08] MEDS: vitamin D (cholecalciferol) 1,000 unit tablet PO SCH (10:09)
[2019-01-08] MEDS: GRAZOPREVIR PO SCH (10:09)
[2019-01-08] MEDS: gabapentin 300mg capsule PO SCH ×3 (10:09→20:06)
[2019-01-08] MEDS: enoxaparin 40mg/0.4ml syringe SQ SCH (10:10)
[2019-01-08 18:40] VITALS: BP 143/71
[2019-01-08] MEDS: sennosides 8.6mg tablet PO SCH (20:06)
[2019-01-08] MEDS: mirtazapine 15mg tablet PO SCH (20:06)
[2019-01-08 22:00] VITALS: BP 133/75
[2019-01-09] MEDS: oxyCODONE IR 5mg (immed. release) tablet PO PRN ×5 (04:54→21:15)
[2019-01-09 05:55] LABS: BASOPHILS % (AUTO) 0.4 % (0-1); EOSINOPHILS # (AUTO) 0.2 X10'3 (0-0.9); HEMOGLOBIN 10.7 g/dl (14.0-17.9); LYMPHOCYTES # (AUTO) 1.2 X10'3 (1.1-4.8); LYMPHOCYTES % (AUTO) 13.5 % (21-51); MEAN CORPUSCULAR HEMOGLOBIN 29.1 PG (27.0-31.0); MEAN CORPUSCULAR HGB CONC 33.5 g/dL (33.0-36.5); MEAN CORPUSCULAR VOLUME 86.9 FL (78-98); MEAN PLATELET VOLUME 7.1 FL (7.4-10.4); MONOCYTES # (AUTO) 1.4 X10'3 (0-0.9); MONOCYTES % (AUTO) 15.6 % (2-12); NEUTROPHILS # (AUTO) 6.3 X10'3 (1.8-7.7); NEUTROPHILS % (AUTO) 68.5 % (42-75); PLATELET COUNT 505 X10'3 (140-440); RED BLOOD COUNT 3.68 X10'6 (4.70-6.10); RED CELL DISTRIBUTION WIDTH 12.9 % (11.5-14.5); WHITE BLOOD COUNT 9.2 X10'3 (4.5-11.0)
[2019-01-09 06:00] VITALS: BP 151/75
--- NOTE | 2019-01-09 06:05 | NUR ---
Patient in room ORTHO 4015. I have received report from July and had the opportunity to ask questions and assume patient care.
[2019-01-09 07:30] LABS: PLATELET ESTIMATE INCREASED; TOTAL CELLS COUNTED 100
[2019-01-09] MEDS ORDERED: VANCOmycin 1250MG/NS 250ml Bag 250 ML IV SCH ×2 (08:00→16:00)
[2019-01-09] MEDS: lactobacillus rhamnosus 10,000 MMU CELLS/CAPSULE PO SCH ×2 (08:15→20:17)
[2019-01-09] MEDS: GRAZOPREVIR PO SCH (08:16)
[2019-01-09] MEDS: tamsulosin 0.4mg capsule PO SCH (08:16)
[2019-01-09] MEDS: gabapentin 300mg capsule PO SCH ×3 (08:16→20:17)
[2019-01-09] MEDS: atorvastatin 20mg tablet PO SCH (08:16)
[2019-01-09] MEDS: ELBASVIR PO SCH (08:16)
[2019-01-09] MEDS: vitamin D (cholecalciferol) 1,000 unit tablet PO SCH (08:16)
[2019-01-09] MEDS: enoxaparin 40mg/0.4ml syringe SQ SCH (08:17)
[2019-01-09 10:30] VITALS: BP 154/89
[2019-01-09 18:00] VITALS: BP 126/75
--- NOTE | 2019-01-09 18:13 | NUR ---
Problems reprioritized. Patient report given, questions answered & plan of care reviewed with Josefa Up
--- NOTE | 2019-01-09 18:13 | NUR ---
Received report from Sinai HARP.
[2019-01-09] MEDS: sennosides 8.6mg tablet PO SCH (20:17)
[2019-01-09] MEDS: mirtazapine 15mg tablet PO SCH (20:17)
[2019-01-09 22:00] VITALS: BP 143/84
[2019-01-10 06:00] VITALS: BP 129/77
--- NOTE | 2019-01-10 06:20 | NUR ---
Patient in room ORTHO 4015. I have received report from Josefa Up and had the opportunity to ask questions and assume patient care.
--- NOTE | 2019-01-10 06:28 | NUR ---
Report given to Sinai HARP.
[2019-01-10] MEDS ORDERED: VANCOMYCIN LEVEL IV ONE ×2 (07:30→15:30)
[2019-01-10] MEDS: tamsulosin 0.4mg capsule PO SCH (08:36)
[2019-01-10] MEDS: atorvastatin 20mg tablet PO SCH (08:36)
[2019-01-10] MEDS: lactobacillus rhamnosus 10,000 MMU CELLS/CAPSULE PO SCH ×2 (08:36→20:27)
[2019-01-10] MEDS: gabapentin 300mg capsule PO SCH ×3 (08:36→20:27)
[2019-01-10] MEDS: enoxaparin 40mg/0.4ml syringe SQ SCH (08:37)
[2019-01-10] MEDS: GRAZOPREVIR PO SCH (08:37)
[2019-01-10] MEDS: ELBASVIR PO SCH (08:37)
[2019-01-10] MEDS: vitamin D (cholecalciferol) 1,000 unit tablet PO SCH (08:37)
[2019-01-10 10:00] VITALS: BP 129/65
[2019-01-10] MEDS: oxyCODONE IR 5mg (immed. release) tablet PO PRN ×3 (13:09→21:41)
[2019-01-10 18:00] VITALS: BP 128/71
--- NOTE | 2019-01-10 18:05 | NUR ---
Problems reprioritized. Patient report given, questions answered & plan of care reviewed with Josefa Zhang
[2019-01-10] MEDS: mirtazapine 15mg tablet PO SCH (20:27)
[2019-01-10] MEDS: sennosides 8.6mg tablet PO SCH (20:28)
[2019-01-10 22:00] VITALS: BP 131/79
[2019-01-11] MEDS: oxyCODONE IR 5mg (immed. release) tablet PO PRN ×5 (04:35→20:59)
[2019-01-11 06:00] VITALS: BP 135/79
--- NOTE | 2019-01-11 06:23 | NUR ---
Problems reprioritized. Patient report given, questions answered & plan of care reviewed with LOYD Bill.
--- NOTE | 2019-01-11 06:40 | NUR ---
Patient in room ORTHO 4015. I have received report from Josefa Montanez RN and had the opportunity to ask questions and assume patient care.
[2019-01-11 06:41] LABS: BASOPHILS # (AUTO) 0.1 X10'3 (0-0.2); BASOPHILS % (AUTO) 0.5 % (0-1); EOSINOPHILS # (AUTO) 0.1 X10'3 (0-0.9); EOSINOPHILS % (AUTO) 1.5 % (0-6); HEMATOCRIT 34.9 % (42.0-52.0); HEMOGLOBIN 11.5 g/dl (14.0-17.9); LYMPHOCYTES # (AUTO) 1.3 X10'3 (1.1-4.8); LYMPHOCYTES % (AUTO) 12.8 % (21-51); MEAN CORPUSCULAR HEMOGLOBIN 28.8 PG (27.0-31.0); MEAN CORPUSCULAR HGB CONC 33.1 g/dL (33.0-36.5); MEAN CORPUSCULAR VOLUME 87.1 FL (78-98); MEAN PLATELET VOLUME 7.7 FL (7.4-10.4); MONOCYTES # (AUTO) 1.6 X10'3 (0-0.9); MONOCYTES % (AUTO) 15.8 % (2-12); NEUTROPHILS # (AUTO) 6.9 X10'3 (1.8-7.7); NEUTROPHILS % (AUTO) 69.4 % (42-75); PLATELET COUNT 523 X10'3 (140-440); RED BLOOD COUNT 4.01 X10'6 (4.70-6.10); RED CELL DISTRIBUTION WIDTH 13.2 % (11.5-14.5)
[2019-01-11 06:56] LABS: ALANINE AMINOTRANSFERASE 70 U/L (12-78); ALBUMIN 2.2 G/DL (3.4-5.0); ALBUMIN/GLOBULIN RATIO 0.4 (1.1-1.5); ALKALINE PHOSPHATASE 81 IU/L (46-116); ANION GAP 9 (8-16); ASPARTATE AMINO TRANSFERASE 53 U/L (10-37); BILIRUBIN,TOTAL 0.7 MG/DL (0.1-1.0); BLOOD UREA NITROGEN 17 MG/DL (7-18); BUN/CREATININE RATIO 14.5 (5.4-32.0); C-REACTIVE PROTEIN 12.38 MG/DL (0.0-0.5); CALCIUM 8.7 MG/DL (8.5-10.1); CHLORIDE 98 MMOL/L (99-107); CREATININE 1.17 MG/DL (0.60-1.10); GLUCOSE 109 MG/DL (70-104); POTASSIUM 4.1 MMOL/L (3.5-5.1); SODIUM 134 MMOL/L (135-145); TOTAL CARBON DIOXIDE 27.2 MMOL/L (24-32); TOTAL PROTEIN 7.2 G/DL (6.4-8.2); eGFR 77 ML/MIN
[2019-01-11] MEDS: gabapentin 300mg capsule PO SCH ×3 (08:31→20:04)
[2019-01-11] MEDS: tamsulosin 0.4mg capsule PO SCH (08:31)
[2019-01-11] MEDS: enoxaparin 40mg/0.4ml syringe SQ SCH (08:32)
[2019-01-11] MEDS: ELBASVIR PO SCH (08:32)
[2019-01-11] MEDS: lactobacillus rhamnosus 10,000 MMU CELLS/CAPSULE PO SCH ×2 (08:32→20:04)
[2019-01-11] MEDS: vitamin D (cholecalciferol) 1,000 unit tablet PO SCH (08:32)
[2019-01-11] MEDS: atorvastatin 20mg tablet PO SCH (08:32)
[2019-01-11] MEDS: GRAZOPREVIR PO SCH (08:32)
[2019-01-11 09:58] LABS: TOTAL CELLS COUNTED 100
[2019-01-11 09:59] LABS: HYPOCHROMASIA 1+; PLATELET ESTIMATE INCREASED; POLYCHROMASIA 1+
[2019-01-11 10:00] VITALS: BP 114/71
[2019-01-11 18:00] VITALS: BP 107/63
--- NOTE | 2019-01-11 18:27 | NUR ---
Problems reprioritized. Patient report given, questions answered & plan of care reviewed with Josefa HARP.
[2019-01-11] MEDS: mirtazapine 15mg tablet PO SCH (20:04)
[2019-01-11] MEDS: sennosides 8.6mg tablet PO SCH (20:05)
[2019-01-11] MEDS: docusate sod 250mg capsule PO SCH (20:11)
[2019-01-11 22:00] VITALS: BP 127/79
[2019-01-12] MEDS: oxyCODONE IR 5mg (immed. release) tablet PO PRN ×5 (05:51→23:49)
[2019-01-12 06:10] VITALS: BP 118/76
--- NOTE | 2019-01-12 06:10 | NUR ---
I have received patient report from Josefa Montanez RN
[2019-01-12] MEDS: atorvastatin 20mg tablet PO SCH (08:48)
[2019-01-12] MEDS: enoxaparin 40mg/0.4ml syringe SQ SCH (08:48)
[2019-01-12] MEDS: ELBASVIR PO SCH (08:48)
[2019-01-12] MEDS: gabapentin 300mg capsule PO SCH ×3 (08:48→20:52)
[2019-01-12] MEDS: GRAZOPREVIR PO SCH (08:48)
[2019-01-12] MEDS: lactobacillus rhamnosus 10,000 MMU CELLS/CAPSULE PO SCH ×2 (08:49→19:17)
[2019-01-12] MEDS: vitamin D (cholecalciferol) 1,000 unit tablet PO SCH (08:49)
[2019-01-12] MEDS: tamsulosin 0.4mg capsule PO SCH (08:49)
[2019-01-12 10:00] VITALS: BP 134/78
[2019-01-12 18:00] VITALS: BP 129/74
--- NOTE | 2019-01-12 18:24 | NUR ---
Patient report given to Josefa Montanez RN
[2019-01-12] MEDS: mirtazapine 15mg tablet PO SCH (20:52)
[2019-01-12] MEDS: sennosides 8.6mg tablet PO SCH (20:52)
[2019-01-12] MEDS: docusate sod 250mg capsule PO SCH (20:52)
[2019-01-12 22:00] VITALS: BP 116/70
[2019-01-13] MEDS: oxyCODONE IR 5mg (immed. release) tablet PO PRN ×5 (04:52→23:37)
[2019-01-13 06:00] VITALS: BP 135/65
--- NOTE | 2019-01-13 06:05 | NUR ---
recieved report from claritza jacome
--- NOTE | 2019-01-13 06:09 | NUR ---
Problems reprioritized. Patient report given, questions answered & plan of care reviewed with LOYD Joe.
[2019-01-13] MEDS: lactobacillus rhamnosus 10,000 MMU CELLS/CAPSULE PO SCH ×2 (07:11→19:27)
[2019-01-13] MEDS: tamsulosin 0.4mg capsule PO SCH (07:12)
[2019-01-13] MEDS: vitamin D (cholecalciferol) 1,000 unit tablet PO SCH (07:13)
[2019-01-13] MEDS: ELBASVIR PO SCH (07:13)
[2019-01-13] MEDS: atorvastatin 20mg tablet PO SCH (07:13)
[2019-01-13] MEDS: gabapentin 300mg capsule PO SCH ×3 (07:13→22:17)
[2019-01-13] MEDS: GRAZOPREVIR PO SCH (07:13)
[2019-01-13] MEDS: enoxaparin 40mg/0.4ml syringe SQ SCH (07:14)
--- NOTE | 2019-01-13 08:42 | NUR ---
gave report to claritza smith
[2019-01-13 10:14] VITALS: BP 144/87
[2019-01-13 10:17] VITALS: BP 88/44
[2019-01-13 17:00] VITALS: BP 114/63
--- NOTE | 2019-01-13 18:10 | NUR ---
Patient in room ORTHO 4015. I have received report from and had the opportunity to ask questions and assume patient care. Addendum: 01/14/19 at 0608 by Charline Hernandez RN *Received report from Aydee HARP
[2019-01-13 22:00] VITALS: BP 141/66
[2019-01-13] MEDS: sennosides 8.6mg tablet PO SCH (22:17)
[2019-01-13] MEDS: docusate sod 250mg capsule PO SCH (22:17)
[2019-01-13] MEDS: mirtazapine 15mg tablet PO SCH (22:17)
[2019-01-14] MEDS: oxyCODONE IR 5mg (immed. release) tablet PO PRN ×4 (04:48→18:59)
--- NOTE | 2019-01-14 06:00 | NUR ---
Problems reprioritized. Patient report given, questions answered & plan of care reviewed with Rosemary HARP.
--- NOTE | 2019-01-14 06:23 | NUR ---
Received report from Charline HARP
[2019-01-14 06:34] VITALS: BP 155/85
[2019-01-14] MEDS: GRAZOPREVIR PO SCH (08:31)
[2019-01-14] MEDS: vitamin D (cholecalciferol) 1,000 unit tablet PO SCH (08:31)
[2019-01-14] MEDS: atorvastatin 20mg tablet PO SCH (08:31)
[2019-01-14] MEDS: ELBASVIR PO SCH (08:31)
[2019-01-14] MEDS: gabapentin 300mg capsule PO SCH ×3 (08:31→20:23)
[2019-01-14] MEDS: tamsulosin 0.4mg capsule PO SCH (08:31)
[2019-01-14] MEDS: lactobacillus rhamnosus 10,000 MMU CELLS/CAPSULE PO SCH ×2 (08:31→20:23)
[2019-01-14] MEDS: enoxaparin 40mg/0.4ml syringe SQ SCH (08:32)
[2019-01-14 10:20] VITALS: BP 91/64
--- NOTE | 2019-01-14 10:25 | NUR ---
Reassessment: Pt PO 100% meals w/ double proteins TID meeting needs. [facility]BM 01/13. No nutrition concerns at this time. Will continue to monitor. Rec: 1. continue regular diet; caution tray w/ chopped meats 2. double proteins TIDWM 3. wt per rx Addendum: 01/14/19 at [address] Amended: Links added.
[2019-01-14 18:00] VITALS: BP 122/66
--- NOTE | 2019-01-14 18:07 | NUR ---
Patient in room ORTHO 4015. I have received report from Rosemary HARP and had the opportunity to ask questions and assume patient care.
[2019-01-14] MEDS: docusate sod 250mg capsule PO SCH (20:23)
[2019-01-14] MEDS: sennosides 8.6mg tablet PO SCH (20:23)
[2019-01-14] MEDS: mirtazapine 15mg tablet PO SCH (20:23)
[2019-01-14 22:00] VITALS: BP 116/59
[2019-01-15] MEDS: oxyCODONE IR 5mg (immed. release) tablet PO PRN ×2 (05:05→13:30)
--- NOTE | 2019-01-15 06:08 | NUR ---
Problems reprioritized. Patient report given, questions answered & plan of care reviewed with Rosemary HARP.
--- NOTE | 2019-01-15 06:34 | NUR ---
Received report from Charline HARP
[2019-01-15 06:41] VITALS: BP 113/59
[2019-01-15] MEDS: vitamin D (cholecalciferol) 1,000 unit tablet PO SCH (07:12)
[2019-01-15] MEDS: gabapentin 300mg capsule PO SCH ×2 (07:12→13:29)
[2019-01-15] MEDS: lactobacillus rhamnosus 10,000 MMU CELLS/CAPSULE PO SCH (07:12)
[2019-01-15] MEDS: atorvastatin 20mg tablet PO SCH (07:12)
[2019-01-15] MEDS: tamsulosin 0.4mg capsule PO SCH (07:12)
[2019-01-15] MEDS: ELBASVIR PO SCH (07:13)
[2019-01-15] MEDS: GRAZOPREVIR PO SCH (07:13)
[2019-01-15] MEDS: enoxaparin 40mg/0.4ml syringe SQ SCH (07:13)
[2019-01-15 07:14] LABS: BASOPHILS % (AUTO) 0.6 % (0-1); EOSINOPHILS # (AUTO) 0.2 X10'3 (0-0.9); EOSINOPHILS % (AUTO) 2.6 % (0-6); HEMATOCRIT 34.4 % (42.0-52.0); HEMOGLOBIN 11.3 g/dl (14.0-17.9); LYMPHOCYTES # (AUTO) 1.2 X10'3 (1.1-4.8); LYMPHOCYTES % (AUTO) 15.6 % (21-51); MEAN CORPUSCULAR HEMOGLOBIN 28.8 PG (27.0-31.0); MEAN CORPUSCULAR HGB CONC 32.9 g/dL (33.0-36.5); MEAN CORPUSCULAR VOLUME 87.4 FL (78-98); MEAN PLATELET VOLUME 7.8 FL (7.4-10.4); MONOCYTES # (AUTO) 1.1 X10'3 (0-0.9); MONOCYTES % (AUTO) 14.3 % (2-12); NEUTROPHILS # (AUTO) 5.3 X10'3 (1.8-7.7); NEUTROPHILS % (AUTO) 66.9 % (42-75); PLATELET COUNT 506 X10'3 (140-440); RED BLOOD COUNT 3.93 X10'6 (4.70-6.10); RED CELL DISTRIBUTION WIDTH 13.7 % (11.5-14.5)
[2019-01-15 10:00] VITALS: BP 103/66
--- NOTE | 2019-01-15 13:44 | NUR ---
Patient left with security IV and tele was removed from patient. patient was alert and oriented at time of discharge. patient was given pain medication and gabapentin at time of discharge. Hep C medication was given to the gurads. patient was escorted out by our security and guards.
== END 2019-01-15 13:45 | DRG 486 ==
LOC: EEVIPCON → ORTHO 4S 11:56 → UNDOADMIN 11:56 → EEVIPCON 11:56 → ORTHO 4S 21:07
PROVIDERS: ADMIT Orthopaedic Surgery; ATTEND Orthopaedic Surgery
PROC: 0SUW09Z Supplement Left Knee Joint, Tibial Surface with Liner, Open Approach (ICD-10-PCS; 2019-01-03)
PROC: 0QDF0ZZ Extraction of Left Patella, Open Approach (ICD-10-PCS; 2019-01-03)
PROC: 3E0T3BZ Introduction of Anesthetic Agent into Peripheral Nerves and Plexi, Percutaneous Approach (ICD-10-PCS; 2019-01-03)
PROC: 3E0U029 Introduction of Other Anti-infective into Joints, Open Approach (ICD-10-PCS; 2019-01-03)
PROC: 0SPD09Z Removal of Liner from Left Knee Joint, Open Approach (ICD-10-PCS; principal; 2019-01-03 17:27)
DX: T84.54XA Infection and inflammatory reaction due to internal left knee prosthesis, initial encounter (principal); E87.1 Hypo-osmolality and hyponatremia; B19.20 Unspecified viral hepatitis C without hepatic coma; E78.5 Hyperlipidemia, unspecified; N40.0 Benign prostatic hyperplasia without lower urinary tract symptoms; F32.9 Major depressive disorder, single episode, unspecified; D64.9 Anemia, unspecified; Y83.1 Surgical operation with implant of artificial internal device as the cause of abnormal reaction of the patient, or of later complication, without mention of misadventure at the time of the procedure; Z96.651 Presence of right artificial knee joint; Z88.0 Allergy status to penicillin; Z88.6 Allergy status to analgesic agent; Z88.8 Allergy status to other drugs, medicaments and biological substances; Y92.89 Other specified places as the place of occurrence of the external cause; Z79.899 Other long term (current) drug therapy
CPT/HCPCS: Z7506; Z7508; 36415; 71045; 76937; 80051; 80053; 80202; 81001; 82565; 82948; 85025; 85651; 86140; 87070; 87075; 87081; 97110; 97112; 97116; 97530; A4215; A6454; A6550; A7000; C1713; C1758; C1776; G0378; J1170; J1650; J2175; J2250; J2405; J2704; J3010; J3260; J3370; J3480; J3490; J7030; J7120